=== PATIENT | male | born 1970 | race African-American/Black ===

== ENCOUNTER 2020-02-19 15:13 | Emergency (ER) | payer MEDICAID, OTHER ==
[~2020-02-19] VITALS: Ht 185.4 cm; Wt 108.0 kg
[~2020-02-19 15:13] MED LIST: POLYTRIM OP SOL10 ML OPHTHALM
[2020-02-19 15:30] VITALS: BP 137/91
[2020-02-19] MEDS ORDERED: Ketorolac 30mg Inj IV ONE (16:00)
[2020-02-19] MEDS ORDERED: Morphine Sulfate 2mg/ml Inj(IV/IM USE ONLY) IVP ONE (16:00)
[2020-02-19] MEDS ORDERED: Omnipaque-300 100ml vial INJ PRN (16:00)
--- NOTE | 2020-02-19 16:04 | Emergency Room Report ---
History of Present Illness General Chief Complaint: Abdominal Pain Source: Patient Present Illness HPI Disclaimer: Please note that this report is being documented using [employer] technology. This can lead to erroneous entry secondary to incorrect interpretation by the dictating instrument. HPI: 49-year-old male no past medical history presented with left lower quadrant abdominal pain. Symptoms present for the past week. He reports a stabbing pain in the left lower quadrant worse with movement and prolonged patient states pain improved when he walks around. Sitting. Denies any nausea , vomiting, fever. Normal bowel movements. No diarrhea. No surgical history. Denies similar complaint in the past. No history of kidney stone. 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 Patient History Reviewed Nursing Documentation: PMH: Agreed; PSxH: Agreed Review of Systems All Other Systems: negative except mentioned in HPI Physical Exam Vital Signs Date Time Temp Pulse Resp B/P (MAP) Pulse Ox O2 Delivery O2 Flow Rate FiO2 20 15:20 98.2 102 20 140/99 (113) 99 Room Air Sp02 EP Interpretation: reviewed, normal General Appearance: well appearing, no apparent distress Head: normocephalic, atraumatic Eyes: bilateral eye PERRL, bilateral eye EOMI ENT: hearing grossly normal, moist mucus membranes Neck: full range of motion, supple Respiratory: lungs clear, normal breath sounds, no rhonchi, no respiratory distress, no retraction, no wheezing Cardiovascular #1: normal peripheral pulses, regular rate, rhythm, no murmur, tachycardia Gastrointestinal: non tender, soft, non-distended, no guarding, no rebound Neurologic: alert, oriented x3, no focal defects Skin: normal color, warm/dry Medical Decision Making Diagnostic Impression: Primary Impression: Left flank pain ER Course MDM: 49-year-old male presents for left lower quadrant abdominal pain. Symptoms present for the past week. Differential included but not limited to diverticulitis, constipation, colitis, UTI,, muscle strain, radiculopathy, muscle spasm, kidney stone to name a few. Clinical course-IV inserted, laboratory studies are sent, analgesics ordered, IV fluids given. Laboratory studies showed no leukocytosis. Electrolytes within normal limits. Hydronephrosis urinalysis with a few red blood cells. I decided to order a CT scan to evaluate for kidney stone and CT did not demonstrate any evidence of or inflammatory process. Appendix was noted to be 12 mm without surrounding inflammation. Patient had no right lower quadrant pain and his abdomen was actually nontender. He reports improvement with walking and more pain when he sits for prolonged periods. At this time I felt patient stable for discharge as he had no leukocytosis no fever and no concerning signs on exam for appendicitis. I will discharge with pain control and have him return for reexamination in 1 to 2 days. Patient was agreeable with the plan Labs -urinalysis with RBCs On reevaluation: Pain improved Plan-discharge patient home with analgesics, follow-up with PMD and return for reexamination in 24-48 hours Laboratory Tests Test 02/19/20 16:00 White Blood Count 6.1 K/UL (4.8-10.8) Red Blood Count 5.31 M/UL (4.70-6.10) Hemoglobin 15.3 G/DL (14.2-18.0) Hematocrit 48.1 % (42.0-52.0) Mean Corpuscular Volume 91 FL (80-99) Mean Corpuscular Hemoglobin 28.8 PG (27.0-31.0) Mean Corpuscular Hemoglobin Concent 31.8 G/DL (32.0-36.0) L Red Cell Distribution Width 13.1 % (11.6-14.8) Platelet Count 212 K/UL (150-450) Mean Platelet Volume 8.3 FL (6.5-10.1) Neutrophils (%) (Auto) 52.1 % (45.0-75.0) Lymphocytes (%) (Auto) 38.7 % (20.0-45.0) Monocytes (%) (Auto) 7.3 % (1.0-10.0) Eosinophils (%) (Auto) 0.5 % (0.0-3.0) Basophils (%) (Auto) 1.3 % (0.0-2.0) Urine Color Yellow Urine Appearance Clear Urine pH 5 (4.5-8.0) Urine Specific [place] 1.030 (1.005-1.035) Urine Protein 1+ (NEGATIVE) H Urine Glucose (UA) Negative (NEGATIVE) Urine Ketones Negative (NEGATIVE) Urine Blood 2+ (NEGATIVE) H Urine Nitrite Negative (NEGATIVE) Urine Bilirubin Negative (NEGATIVE) Urine Urobilinogen Normal MG/DL (0.0-1.0) Urine Leukocyte Esterase Negative (NEGATIVE) Urine RBC 5-10 /HPF (0 - 0) H Urine WBC 0 /HPF (0 - 0) Urine Squamous Epithelial Cells None /LPF (NONE/OCC) Urine Bacteria Few /HPF (NONE) Urine Mucus Many /LPF (NONE/OCC) H Sodium Level 144 MMOL/L (136-145) Potassium Level 4.1 MMOL/L (3.5-5.1) Chloride Level 105 MMOL/L (98-107) Carbon Dioxide Level 28 MMOL/L (21-32) Anion Gap 11 mmol/L (5-15) Blood Urea Nitrogen 16 mg/dL (7-18) Creatinine 1.3 MG/DL (0.55-1.30) Estimated Glomerular Filtration Rate > 60 mL/min (>60) Glucose Level 94 MG/DL (74-106) Calcium Level 9.1 MG/DL (8.5-10.1) Total Bilirubin 0.3 MG/DL (0.2-1.0) Aspartate Amino Transferase (AST) 13 U/L (15-37) L Alanine Aminotransferase (ALT) 24 U/L (12-78) Alkaline Phosphatase 100 U/L (46-116) Total Protein 7.7 G/DL (6.4-8.2) Albumin 4.2 G/DL (3.4-5.0) Globulin 3.5 g/dL Albumin/Globulin Ratio 1.2 (1.0-2.7) Lipase 234 U/L (73-393) Rhythm Strip Diag. Results EP Interpretation: yes Rate: 83 Rhythm: NSR, no PVC's, no ectopy CT/MRI/US Diagnostic Results CT/MRI/US Diagnostic Results : Imaging Test Ordered: CT abdomen and pelvis Impression History: PAIN Exam: CT ABDOMEN + PELVIS Without Contrast Technique more: CTDI is 12.30 mGy and DLP is 657.40 mGy-cm. Technique more: One or more of the following dose reduction techniques were used: automated exposure control, adjustment of the mA and/or kV according to patient size, use of iterative reconstruction technique. Comparison: None available FINDINGS: The lung bases are clear. The abdominal solid organs, gallbladder and abdominal aorta appear within limits on noncontrast imaging. No renal stones, hydronephrosis, perinephric stranding or evidence of ureteral or bladder stone. No bowel dilation or free air. The appendix measures up to 1.2 cm in diameter without evidence of wall thickening or surrounding inflammatory change, clinically correlate. No free fluid. The bladder appears within limits. IMPRESSION: The appendix measures up to 1.2 cm in diameter without evidence of wall thickening or surrounding inflammatory change, clinically correlate. No free fluid. Last Vital Signs Date Time Temp Pulse Resp B/P (MAP) Pulse Ox O2 Delivery O2 Flow Rate FiO2 02/19/20 15:20 98.2 102 20 140/99 (113) 99 Room Air Status: improved Disposition: HOME, SELF-CARE Condition: Stable Scripts Hydrocodone Bit/Acetaminophen 5-325* (NORCO 5-325 TABLET*) 1 Each Tablet 1 TAB ORAL Q6H PRN for severe pain, #10 TAB 0 Refills Prov: Spencer Art M.D. 02/19/20 Naproxen* (NAPROXEN*) 500 Mg Tablet 500 MG ORAL TWICE A WEEK PRN for For Pain, #60 TAB 0 Refills Prov: Spencer Art M.D. 02/19/20 Referrals: [facility],REFERRING (PCP) Spencer Art M.D. February 19, 2020 16:04
[2020-02-19 16:36] LABS: APPEARANCE,URINE CLEAR; BILIRUBIN, URINE NEGATIVE (NEGATIVE); GLUCOSE, URINE (UA) NEGATIVE (NEGATIVE); KETONES,URINE NEGATIVE (NEGATIVE); LEUKOCYTE ESTERASE ,URINE NEGATIVE (NEGATIVE); NITRITE,URINE NEGATIVE (NEGATIVE); PH,URINE 5 (4.5-8.0); PROTEIN,URINE 1+ (NEGATIVE); UROBILINOGEN,URINE NORMAL MG/DL (0.0-1.0)
[2020-02-19 16:37] LABS: BASOPHILS % (AUTO) 1.3 % (0.0-2.0); EOSINOPHILS % (AUTO) 0.5 % (0.0-3.0); HEMATOCRIT 48.1 % (42.0-52.0); HEMOGLOBIN 15.3 G/DL (14.2-18.0); LYMPHOCYTES % (AUTO) 38.7 % (20.0-45.0); MEAN CORPUSCULAR VOLUME 91 FL (80-99); MONOCYTES % (AUTO) 7.3 % (1.0-10.0); NEUTROPHILS % (AUTO) 52.1 % (45.0-75.0); PLATELET COUNT 212 K/UL (150-450); RED BLOOD COUNT 5.31 M/UL (4.70-6.10); RED CELL DISTRIBUTION WIDTH 13.1 % (11.6-14.8); WHITE BLOOD COUNT 6.1 K/UL (4.8-10.8)
[2020-02-19 16:45] LABS: ANION GAP 11 mmol/L (5-15); BLOOD UREA NITROGEN 16 mg/dL (7-18); CALCIUM 9.1 MG/DL (8.5-10.1); CARBON DIOXIDE 28 MMOL/L (21-32); CHLORIDE 105 MMOL/L (98-107); CREATININE 1.3 MG/DL (0.55-1.30); POTASSIUM 4.1 MMOL/L (3.5-5.1); SODIUM 144 MMOL/L (136-145)
[2020-02-19 16:48] LABS: COLOR,URINE YELLOW
[2020-02-19 16:51] LABS: ALANINE AMINOTRANSFERASE 24 U/L (12-78); ALBUMIN 4.2 G/DL (3.4-5.0); ALBUMIN/GLOBULIN RATIO 1.2 (1.0-2.7); ALKALINE PHOSPHATASE 100 U/L (46-116); ASPARTATE AMINO TRANSFERASE 13 U/L (15-37); BILIRUBIN,TOTAL 0.3 MG/DL (0.2-1.0)
[2020-02-19 17:30] VITALS: BP 132/87
--- NOTE | 2020-02-19 17:50 | Diagnostic Imaging Report ---
History: PAIN Exam: CT ABDOMEN + PELVIS Without Contrast Technique more: CTDI is 12.30 mGy and DLP is 657.40 mGy-cm. Technique more: One or more of the following dose reduction techniques were used: automated exposure control, adjustment of the mA and/or kV according to patient size, use of iterative reconstruction technique. Comparison: None available FINDINGS: The lung bases are clear. The abdominal solid organs, gallbladder and abdominal aorta appear within limits on noncontrast imaging. No renal stones, hydronephrosis, perinephric stranding or evidence of ureteral or bladder stone. No bowel dilation or free air. The appendix measures up to 1.2 cm in diameter without evidence of wall thickening or surrounding inflammatory change, clinically correlate. No free fluid. The bladder appears within limits. IMPRESSION: The appendix measures up to 1.2 cm in diameter without evidence of wall thickening or surrounding inflammatory change, clinically correlate. No free fluid.
[2020-02-19] MEDS ORDERED: NAPROXEN500 M2 ORAL (18:28)
[2020-02-19] MEDS ORDERED: NORCO 5-325 TA1 EAC1 ORAL (18:28)
[2020-02-19 18:45] VITALS: BP 136/84
== END 2020-02-19 18:45 | disposition home or self-care (01) ==
LOC: EMR 15:36
DX: R10.32 Left lower quadrant pain (principal)
CPT/HCPCS: 36415; 74176; 80053; 81003; 83690; 85025; 96361; 96374; 96375; J1885; J2270; J2405; J7030; Z7502; 99284